=== PATIENT | female | born 1985 | race Asian ===

== ENCOUNTER 2025-03-02 08:02 | Outpatient (REF) | payer OTHER, SELFPAY ==
--- NOTE | ~2025-03-02 | US_ITS ---
EXAMINATION: US PELVIS CLINICAL INFORMATION: Abnormal bleeding. COMPARISON: None available. TECHNIQUE: Ultrasound of the pelvis is performed using both transabdominal and transvaginal transducers along with Doppler. Transvaginal imaging is performed due to inadequate visualization transabdominally. FINDINGS: Uterus: The uterus is in retroversion flexion and measures 8 x 4 x 6 cm. Volume: 100 cc. The double wall endometrial thickness is 6 mm. The uterus is smooth in contour and has normal myometrial echogenicity. No visible fibroid. Adnexa: The ovaries are identified with flow on color Doppler interrogation.. No gross solid or cystic lesion. Scattered follicles. No free fluid in the cul-de-sac. Right ovary measures 3 x 2 x 3 cm. Volume: 7 cc. Left ovary measures 3 x 2 x 3 cm. Volume: 9 cc. US/US pelvic and transvaginal IMPRESSION: Endometrial stripe: 6 mm. Correlate with patient's menstrual cycle. No ovarian torsion. No solid or cystic ovarian mass.. No gross uterine fibroid. Electronically signed by: Leon Cuellar MD 03/02/2025 12:30 PM EST
== END 2025-03-02 08:03 | disposition home or self-care (01) ==
LOC: HO.UMASIMG 08:02
PROVIDERS: Visit Provider Nurse Practitioner Women's Health
DX: N93.9 Abnormal uterine and vaginal bleeding, unspecified (principal)
CPT/HCPCS: 76830; 76856

== ENCOUNTER → 2025-03-02 11:47 | Outpatient (BNV) | payer OTHER, SELFPAY | PROVIDERS: Visit Provider Radiology Diagnostic Radiology | DX: N93.9 Abnormal uterine and vaginal bleeding, unspecified (principal) | CPT/HCPCS: 76830; 76856 ==